=== PATIENT | female | born 1990 | race Caucasian/White ===

== ENCOUNTER 2018-08-14 19:20 | Emergency (ER) | payer BC, MEDICAID ==
[~2018-08-14] VITALS: Ht 160 cm; Wt 59.0 kg
--- NOTE | 2018-08-14 19:20 | NUR ---
Patient to ER bed 05 to gown for evaluation. Side rails up. Report given to Amilcar HOLM.
[2018-08-14 19:48] VITALS: BP_SYST 103
--- NOTE | 2018-08-14 19:50 | NUR ---
NEVAEH Overton bedside for Pt eval
--- NOTE | 2018-08-14 19:55 | NUR ---
Pt came into ED C/O right flank pain that started this morning. Pt states she has had a history of kidney infections in the past and pain experienced today is similar to previous kidney infection. Pt states she has been having left flank pain for 2 months, and started with right flank pain this morning, with associated suprapubic pressure and foul smelling urine. No other injuries and or complaints noted. VSS no s/s of acute distress. Resting on gurney with rails up
[2018-08-14 19:56] LABS: BILIRUBIN,URINE NEGATIVE (NEGATIVE); BLOOD, URINE 2+ (NEGATIVE); CLARITY/URINE HAZY (CLEAR); COLOR,URINE YELLOW (YELLOW); GLUCOSE,URINE NEGATIVE (NEGATIVE); KETONES,URINE TRACE (NEGATIVE); LEUKOCYTE ESTERASE ,URINE 3+ (NEGATIVE); NITRITE, URINE NEGATIVE (NEGATIVE); PH,URINE 6.5 (5.0-8.0); PROTEIN URINE 1+ (NEGATIVE); UROBILINOGEN,URINE 0.2 (0.2-1.0)
[2018-08-14] MEDS ORDERED: KETOROLAC TROMETHAMINE 30 MG VIAL IM ONE (20:00)
[2018-08-14 20:03] LABS: RBC,URINE 0-3 /HPF (0-3); WBC,URINE 80-100 /HPF (0-3)
[2018-08-14 20:04] LABS: BACTERIA,URINE FEW /HPF (None Seen); MUCUS,URINE None Seen /LPF (None Seen)
[2018-08-14] MEDS ORDERED: cefTRIAXone 1 GM VIAL IM ONE (20:15)
[2018-08-14 20:36] VITALS: BP_SYST 103
--- NOTE | 2018-08-14 20:36 | NUR ---
Patient given written and verbal discharge instructions and verbalizes understanding. ER MD discussed with patient the results and treatment provided. Patient in stable condition. ID arm band removed. Rx of Keflex and Motrin given. Patient educated on pain management and to follow up with PMD. Pain Scale 0/10. Opportunity for questions provided and answered. Medication side effect fact sheet provided.
== END 2018-08-14 20:36 | disposition home or self-care (01) ==
LOC: SED 19:20
DX: N12 Tubulo-interstitial nephritis, not specified as acute or chronic (principal); Z88.2 Allergy status to sulfonamides; Z91.011 Allergy to milk products
CPT/HCPCS: 81000; 81025; 87086; 87186; 96372; 99283; J0696; J1885